=== PATIENT | female | born 1965 | race Caucasian/White ===

== ENCOUNTER 2018-03-02 14:04 | Emergency (ER) | payer MEDICAID ==
[2018-03-02] MEDS: KETOROLAC 30 MG INJ IM (15:45)
== END 2018-03-02 16:12 | disposition home or self-care (01) ==
LOC: FTE 14:04
DX: M79.605 Pain in left leg (principal)
CPT/HCPCS: 93971; 96372; 99285-25

== ENCOUNTER 2018-05-10 23:21 | Emergency (ER) | payer MEDICAID ==
[2018-05-10] MEDS ORDERED: EPINEPHrine 1 MG INJ SC (23:43)
[2018-05-10] MEDS: DIPHENHYDRAMINE 50 MG INJ IV (23:49)
[2018-05-10] MEDS: SOD CHLORIDE 0.9% 1,000 ML IV (23:49)
[2018-05-10] MEDS: FAMOTIDINE 20 MG INJ IV (23:49)
[2018-05-10] MEDS: METHYLPREDNISOLONE 125 MG INJ IV (23:49)
== END 2018-05-11 01:19 | disposition home or self-care (01) ==
LOC: FTE 23:21
DX: R21 Rash and other nonspecific skin eruption (principal)
CPT/HCPCS: 96374; 96375; 99284-25

== ENCOUNTER 2019-05-16 15:12 | Emergency (ER) | payer MEDICAID | END 2019-05-16 16:32 | disposition home or self-care (01) | LOC: FTE 16:32 | DX: R21 Rash and other nonspecific skin eruption (principal) | CPT/HCPCS: 99282; Z7502 ==

== ENCOUNTER 2019-06-07 13:22 | Emergency (ER) | payer MEDICAID ==
[2019-06-07] MEDS: FAMOTIDINE 20 MG TAB PO (13:46)
[2019-06-07] MEDS: predniSONE 20 MG TAB PO (13:46)
[2019-06-07] MEDS: DIPHENHYDRAMINE 50 MG CAP PO (13:46)
[2019-06-07] MEDS: EPINEPHrine 1 MG INJ IM (13:47)
[2019-06-07] MEDS: hydrOXYzine HCL 25 MG TAB PO (15:05)
== END 2019-06-07 15:28 | disposition home or self-care (01) ==
LOC: E/R 13:22
DX: L29.9 Pruritus, unspecified (principal)
CPT/HCPCS: 96372; 99284-25